=== PATIENT | male | born 1965 | race Caucasian/White ===

== ENCOUNTER 2019-12-14 15:21 | Emergency (ER) | payer BC, OTHER, SELFPAY ==
--- NOTE | 2019-12-14 15:25 | ED.WOUNDLAC ---
HPI - Wound/Laceration General Chief Complaint: Wound/Laceration Stated Complaint: Cut left 3 finger Time Seen by Provider: 12/14/19 15:40 Source: patient and RN notes reviewed Mode of arrival: ambulatory Limitations: no limitations History of Present Illness HPI narrative: 54-year male presents with concern for laceration to the third digit of his left hand. Reports sustained just prior to arrival on a broken ceramic. Reports he was dealing with superglue when he sustained a laceration, so he had superglue on his finger. Reports he tried to soak the wound into leaves to stop the bleeding, with no success. Denies weakness, decreased range of motion, decreased sensation in the digit. Patient is not up-to-date on his tetanus Extremity Location: Left: hand Related Data Home Medications Medication Instructions Recorded Confirmed amlodipine [Norvasc] 5 mg PO DAILY 12/14/19 12/14/19 diclofenac sodium 75 mg PO BID 12/14/19 12/14/19 hydrocodone-acetaminophen 1 tablet QID PRN 12/14/19 12/14/19 Allergies Allergy/AdvReac Type Severity Reaction Status Date / Time No Known Allergies Allergy Verified 12/14/19 15:38 Review of Systems Review of Systems: Narrative: CONSTITUTIONAL: Denies malaise, chills, sweats, or fever. SKIN: Reports laceration to the tip of the third digit of the left hand MUSCULOSKELETAL: Denies musculoskeletal pain, decreased range of motion NEUROLOGIC: Denies numbness, weakness. All systems reviewed & are unremarkable except as noted in HPI and below PMFSH Family History Family History (Updated 07/20/18 @ 09:48 by DOCTOR UNKNOWN) Mother Family history of diabetes mellitus in first degree relative Grandparent Family history of malignant neoplasm of breast Family history of lung cancer Other Carcinoma of colon Social History Social History Smoking status: Never smoker Alcohol intake: current Gender identity (if verbalized by the patient): Male Comments At time of signature, agree with nursing past medical, surgical, social and family history. There is no relevant family history pertinent to the presenting complaint Exam Narrative: Exam Narrative: GENERAL: Well-appearing, well-nourished, and in no acute distress. HEAD: Normocephalic, atraumatic. EYES: PERRLA, conjunctivae clear NECK: Supple. CHEST: Speaks in full sentences. No respiratory distress. HEART: Regular rate and rhythm. Normal and equal peripheral pulses. EXTREMITIES: Third digit of left hand has normal strength and sensation. 5/5 strength with digit flexion, extension. Range of motion normal. No clubbing, cyanosis, or edema noted. No tenderness. Normal digital cascade with flexion of fingers, median, ulnar and radial nerve intact. Normal sensation of each side of finger. Can perform 'okay' sign, 'cross over finger test of index and middle fingers' and 'thumbs up' sign. No scissoring. Normal thumb opposition. Good capillary refill and radial pulse. Distal capillary refill <3 seconds. NEURO: Alert and oriented x3. PSYCH: Normal mood and affect Course Course Emergency Course: Patient is aware of diagnosis, understands and agrees to treatment plan. Anticipatory guidance given. Patient agrees to follow-up as directed and is aware of reasons to seek care at the emergency department. Portions of this record may have been created with voice recognition software Vital Signs Vital signs: Reviewed. Procedures Laceration Laceration 1: Date: 12/14/19 Time: 16:10 Site: hand Side (If applicable): left Size (cm): 1 Description: linear Depth: simple, single layer Pre-repair: wound explored and irrigated ====== Skin Level ====== Skin layer closed with: dermabond and steri strips ====== Subcutaneous Layer ====== ====== Muscle Layer ====== ====== Tendon Layer ====== MDM - Wound/Laceration MDM Narrative Medical decision making narrative: Wound
[2019-12-14 15:39] VITALS: BP 132/78; PULSE 74; RESP 16; TEMP 37.3; O2SAT 98
[2019-12-14] MEDS: TETANUS,DIPHTHERIA,AC PERTUSSIS ADULT (0.5 ML) BOOSTRIX IM (15:57)
== END 2019-12-14 16:23 | disposition home or self-care (01) ==
PROVIDERS: Emergency Provider Nurse Practitioner
DX: S61.412A Laceration without foreign body of left hand, initial encounter (principal); W26.8XXA Contact with other sharp object(s), not elsewhere classified, initial encounter; Z23 Encounter for immunization
CPT/HCPCS: 12001; 90471; 90715; 99212; G0463

== ENCOUNTER 2020-12-12 12:22 | Emergency (ER) | payer OTHER, BC, SELFPAY ==
--- NOTE | ~2020-12-12 | XR_ITS ---
EXAMINATION: XR abdomen/kub 1V INDICATION: Left ureteral stones TECHNIQUE: Supine views of the abdomen were obtained on 2 radiographs. COMPARISON: CT from today FINDINGS: There are stones measuring 3 mm and 2 mm in the left proximal ureter projecting between the left L3 and L4 transverse processes. There are multiple stones in the lower pole of the right kidney which measure up to 11 mm. Additional punctate stones are seen throughout both kidneys. The bowel ga s pattern is normal. There is mild osteoarthritis of the hips. The lung bases are clear. Surgical cli ps are noted in the left scrotum. IMPRESSION: 1. Stones in the left proximal ureter. 2. Bilateral nephrolithiasis. Reviewed, dictated and finalized at location B.
--- NOTE | ~2020-12-12 | CT_ITS ---
EXAMINATION: CT abdomen pelvis wo con DATE: 12/12/2020 13:31 INDICATION: Left flank pain. TECHNIQUE: Computed tomography (CT) of the abdomen and pelvis was performed without intravenous contr ast. Automated exposure control and iterative reconstruction technique were employed. The dose-length product was 739.01 mGy-cm. COMPARISON: 08/18/2012 FINDINGS: Mild discoid atelectasis/scarring in the lingula, right middle and bilateral lower lobes. Heart size is normal. No pericardial or pleural effusion. Cholecystectomy clips the gallbladder fossa. 1.[address] in the left hepatic lobe. Spleen, pancreas and bilateral adrenal glands are normal. Bilateral nephrolithiasis with cluster of at least 6 stones in the caudal most calyx of the right kid regan the largest stone measuring 8 mm. There are a few additional 1-2 mm stones in the more cephalad r ight kidney. No right-sided ureteral stones or hydronephrosis. There are four, 1 mm stones scattered throughout the left kidney. There are 2 small stones in the proximal most left ureter, the larger and more caudal measuring 3 mm with mild left hydronephrosis. Bladder and prostate are unremarkable. There are few scattered colonic diverticula without adjacent from 3 change to suggest diverticulitis. Small bowel and appendix are normal. No free intraperitoneal gas or fluid. No pathologically enlarge d abdominal or pelvic lymphadenopathy. Likely vasectomy clips at the base of the left and right sides of the scrotum. Mild to moderate lumbar spondylosis. Schmorl's node along the inferior endplate of L 5 with small Schmorl's node along the superior endplate of L4. There are bridging osteophytes at mult iple levels in the spine, consistent with diffuse idiopathic skeletal hyperostosis (DISH). IMPRESSION: 1. Bilateral nephrolithiasis with a couple at least partially obstructing stones measuring up to 3 mm in the proximal left kidney with mild left hydronephrosis. Reviewed, dictated and finalized at location A. IMPRESSION: 1. Bilateral nephrolithiasis with a couple at least partially obstructing stone s measuring up to 3 mm in the proximal left kidney with mild left hydronephrosi s.
[2020-12-12 12:28] VITALS: BP 154/93; PULSE 72; RESP 16; TEMP 36.6; O2SAT 98
[2020-12-12 13:02] LABS: Anion Gap 9 mmol/L (8-16); Blood Urea Nitrogen 18 mg/dL (9-20); Calcium 9.3 mg/dL (8.4-10.2); Carbon Dioxide 23 mmol/L (22-30); Chloride 107 mmol/L (98-107); Estimated CRCL calculation 106 ml/min; Estimated Glomerular Filt Rate > 60; Glucose 112 mg/dL (75-110); Potassium 3.9 mmol/L (3.4-5.0); Sodium 139 mmol/L (137-145)
[2020-12-12] MEDS: KETOROLAC 30 MG/ML VIAL (*BKC) IV PUSH (13:04)
[2020-12-12 13:14] LABS: Add Urine Microscopic? YES; Appearance Urine Cloudy (Clear); Bacteria Urine Trace /hpf; Bilirubin Urine Negative (Negative); Blood Urine 3+ (Negative); Color Urine Yellow (Yellow); Glucose Urine UA Negative (Negative); Ketones Urine Negative (Negative); Leukocyte Esterase Ur Negative LEU/UL (Negative); Nitrate Urine Negative (Negative); Protein Urine 1+ mg/dL (Negative); RBC Urine >75 /hpf (0-2); Specific Grav Ur 1.019 (1.001-1.035); Urobilinogen Urine Negative mg/dL (<2.0); WBC Urine 0-3 /hpf
[2020-12-12 13:21] LABS: Basophils Absolute Auto 0.1 K/mm3 (0.0-0.1); Basophils Percent Auto 0.9 % (0.2-1.2); Eosinophils Absolute Auto 0.1 K/mm3 (0-0.3); Eosinophils Percent Auto 1.8 % (0-4.4); Hematocrit 42.9 % (42.0-52.0); Hemoglobin 14.4 g/dL (14.0-18.0); Immature Granulocyte Absolute 0.01 K/mm3 (0.00-0.031); Immature Granulocyte Percent A 0.2 % (0-0.5); Lymphocytes Percent Auto 33.4 % (18.3-44.2); Mean Corpuscular HGB Conc 33.6 g/dl (32-36); Mean Corpuscular Hemoglobin 30.4 pg (26-34); Mean Corpuscular Volume 90.7 fl (80-100); Mean Platelet Volume 10.4 fl (7.4-10.4); Monocytes Absolute Auto 0.5 K/mm3 (0.1-0.6); Monocytes Percent Auto 8.3 % (2.6-8.5); Neutrophils Absolute Auto 3.2 K/mm3 (1.3-6.7); Neutrophils Percent Auto 55.4 % (45.5-73.1); Platelet Count Result 202 k/mm3 (150-375); Red Blood Count 4.73 M/mm3 (4.6-6.20); Red Cell Distribution Width 12.4 % (11.5-14.5); White Blood Count 5.7 K/mm3 (4.5-10.0)
--- NOTE | 2020-12-12 13:48 | ED.GENADULT ---
HPI - General Adult General Chief complaint: Abdominal Pain Stated complaint: left flank pain Time Seen by Provider: 12/12/20 12:28 History of Present Illness HPI narrative: Patient is a 55-year-old male who presents ER with sudden onset left flank pain. Began earlier today. Mild nausea. Feels like previous kidney stones. No obvious hematuria urinary frequency or urgency. Denies fevers or chills or sweats. No alleviating factors. Related Data Home Medications Medication Instructions Recorded Confirmed amlodipine [Norvasc] 5 mg PO DAILY 12/14/19 07/31/20 Allergies Allergy/AdvReac Type Severity Reaction Status Date / Time No Known Allergies Allergy Verified 12/12/20 12:36 Review of Systems Review of Systems: All systems reviewed & are unremarkable except as noted in HPI and below Constitutional: Constitutional: Denies chills, Denies fever(s) and Denies weakness Gastrointestinal: Gastrointestinal: Denies abdominal pain, Reports nausea and Denies vomiting Genitourinary: Genitourinary: Denies hematuria, Denies oliguria and Denies dysuria Comments: Flank pain PMFSH Past Medical History Medical History (Updated 12/12/20 @ 14:59 by Coleman Small MD) Cholecystectomy planned Kidney stones Spine injury Surgical History Surgical History (Updated 07/31/20 @ 11:38 by Dalia Leon CMA) History of knee surgery Family History Family History (Updated 07/20/18 @ 09:48 by DOCTOR UNKNOWN) Mother Family history of diabetes mellitus in first degree relative Grandparent Family history of malignant neoplasm of breast Family history of lung cancer Other Carcinoma of colon Social History Social History Smoking status: Former smoker Alcohol intake: current Gender identity (if verbalized by the patient): Male Exam Narrative: Exam Narrative: GENERAL: Well-appearing, well-nourished, and in no acute distress. HEAD: Normocephalic, atraumatic. CHEST: Clear to auscultation. No respiratory distress. HEART: Regular rate and rhythm. Normal peripheral pulses. ABDOMEN: Soft, nontender, nondistended. EXTREMITIES: Normal range of motion. No edema. SKIN: Warm, dry, no rash. NEURO: Alert and oriented x3. PSYCH: Normal mood and affect. Course Course Emergency Course: Pain improved with Toradol morphine. Discussed case with urology. Discharge home with supportive therapy. Return precautions given. Vital Signs Vital signs: Vital Signs Temperature 97.9 F 12/12/20 12:28 Pulse Rate 72 12/12/20 12:28 Respiratory Rate 16 12/12/20 12:28 Blood Pressure 154/93 H 12/12/20 12:28 Pulse Oximetry 98 12/12/20 12:28 Temperature 97.9 F 12/12/20 12:28 Pulse Rate 72 12/12/20 12:28 Respiratory Rate 16 12/12/20 12:28 Blood Pressure 154/93 H 12/12/20 12:28 Pulse Oximetry 98 12/12/20 12:28 Medical Decision Making Vital Signs Vital Signs: Vital Signs Temperature 97.9 F 12/12/20 12:28 Pulse Rate 72 12/12/20 12:28 Respiratory Rate 16 12/12/20 12:28 Blood Pressure 154/93 H 12/12/20 12:28 Pulse Oximetry 98 12/12/20 12:28 Temperature 97.9 F 12/12/20 12:28 Pulse Rate 72 12/12/20 12:28 Respiratory Rate 16 12/12/20 12:28 Blood Pressure 154/93 H 12/12/20 12:28 Pulse Oximetry 98 12/12/20 12:28 Lab Data Result diagrams: 12/12/20 12:45 12/12/20 12:45 Labs: Lab Results 12/12/20 12/12/20 12/12/20 Range/Units 12:45 12:45 12:45 WBC 5.7 (4.5-10.0) K/mm3 RBC 4.73 (4.6-6.20) M/mm3 Hgb 14.4 (14.0-18.0) g/dL Hct 42.9 (42.0-52.0) % MCV 90.7 (80-100) fl MCH 30.4 (26-34) pg MCHC 33.6 (32-36) g/dl RDW 12.4 (11.5-14.5) % Plt Count 202 (150-375) k/mm3 MPV 10.4 (7.4-10.4) fl Immature Gran % (Auto) 0.2 (0-0.5) % Neut % (Auto) 55.4 (45.5-73.1) % Lymph % (Auto) 33.4 (18.3-44.2) % [place] % (Auto) 8.3 (2.6-8.5) % Eos % (Auto) 1.8 (0-4.4) % Baso %
[2020-12-12] MEDS: MORPHINE SULFATE (*CRX) 4 MG/ML INJ IV PUSH (14:13)
[2020-12-12 14:50] VITALS: BP 162/104; PULSE 71; RESP 18; O2SAT 99
--- NOTE | 2020-12-12 15:11 | WPDURCON ---
Assessment and Plan Assessment and plan (1) Ureterolithiasis: Code(s): N20.1 - Calculus of ureter Status: Acute Assessment and Plan: Patient will be discharged home with pain meds, as well as Flomax. He is instructed to strain his urine. He will follow up next week. If he develops any recurrent pain that he may require further management with either ureteroscopy and stone extraction versus lithotripsy. Urology Consult Note HPI Date Seen: 12/12/20 Primary Care Provider: Memo Gaitan DO Consult Narrative Narrative: Emmanuel Ngo is a 55 year old male Who presented emergency room with acute onset of left flank pain. Patient denied any fevers. He does have a history of prior stones which she is normally past. Patient has had a prior lithotripsy approximately 10 years ago. Evaluation in the emergency room with a CT scan revealed 2 proximal left ureteral stones. The largest measures 3 mm. He also has significant stone burden in the right lower pole. White count is normal. Patient is afebrile. Pain is controlled at this time. Review of Systems Review of Systems: All systems reviewed & are unremarkable except as noted in HPI and below PMFSH Past Medical History Medical History Cholecystectomy planned Kidney stones Spine injury Surgical History Surgical History History of knee surgery Family History Family History Mother Family history of diabetes mellitus in first degree relative Grandparent Family history of malignant neoplasm of breast Family history of lung cancer Other Carcinoma of colon Social History Social History Smoking status: Former smoker Alcohol intake: current Gender identity (if verbalized by the patient): Male Meds Home Medications and Allergies Home Medications Medication Instructions Recorded Confirmed Type amlodipine [Norvasc] 5 mg PO DAILY 12/14/19 07/31/20 History hydrocodone-acetaminophen 1 tablet PO Q6H PRN #20 tablet 12/12/20 Rx ondansetron 4 mg PO Q6H PRN #10 tablet 12/12/20 Rx tamsulosin 0.4 mg PO DAILY #7 cap 12/12/20 Rx Allergies Allergy/AdvReac Type Severity Reaction Status Date / Time No Known Allergies Allergy Verified 12/12/20 12:36 Vital Signs Vital Signs - 24 hr 12/12/20 12:28 Temperature 36.6 C Pulse Rate 72 Respiratory Rate 16 Blood Pressure 154/93 H Pulse Oximetry 98 Exam Const: General: cooperative and no acute distress Chest: Chest palpation & inspection: normal inspection of the chest Resp: Effort & Inspection: normal respiratory effort Cardio: Rate: regular rate Rhythm: regular rhythm Results Labs CBC & Chem 7: 12/12/20 12:45 12/12/20 12:45 Labs: Short CBC 12/12/20 Range/Units 12:45 WBC 5.7 (4.5-10.0) K/mm3 Hgb 14.4 (14.0-18.0) g/dL Hct 42.9 (42.0-52.0) % Plt Count 202 (150-375) k/mm3 BMP 12/12/20 12:45 Sodium 139 Potassium 3.9 Chloride 107 Carbon Dioxide 23 BUN 18 Creatinine 0.90 Glucose 112 H Calcium 9.3 Urine 12/12/20 Range/Units 12:45 Urine Color Yellow (Yellow) Urine Appearance Cloudy H (Clear) Urine pH 7.0 (5.0-9.0) Ur Specific [place] 1.019 (1.001-1.035) Urine Protein 1+ H (Negative) mg/dL Urine Glucose (UA) Negative (Negative) mg/dL
== END 2020-12-12 15:32 | disposition home or self-care (01) ==
PROVIDERS: Emergency Provider Emergency Medicine; PCP Internal Medicine
DX: N13.2 Hydronephrosis with renal and ureteral calculous obstruction (principal); Z87.442 Personal history of urinary calculi; Z87.891 Personal history of nicotine dependence
CPT/HCPCS: 36415; 74018; 74176; 80048; 81001; 85025; 96374; 96375; 99284; J1885; J2270

== ENCOUNTER 2021-12-19 19:57 | Emergency (ER) | payer BC, OTHER, SELFPAY ==
[2021-12-19 20:40] VITALS: BP 135/80; PULSE 80; RESP 16; TEMP 36.9; O2SAT 99
--- NOTE | 2021-12-19 21:24 | ED.EYEPROB ---
HPI - Eye Problem General Chief complaint: Eye Problems Stated complaint: eye pain Time Seen by Provider: 12/19/21 21:25 Source: patient, RN notes reviewed and old records reviewed Mode of arrival: ambulatory Limitations: no limitations History of Present Illness HPI Narrative: [id number] year old male who presents to [facility] care with complaints of irritation to his left eye since midday. He reports that he used some OTC drops to his left eye with no relief. Patient is having excessive tearing to his left eye with redness and some swelling to his left upper eyelid. Patient reports that it feels like something in his eye and he states he is concerned for possible corneal abrasion. MD chief complaint: eye redness and foreign body Onset (ago): hour(s) (mid day today) Treatments Prior to Arrival: OTC eye drops Related Data Home Medications Medication Instructions Recorded Confirmed amlodipine 5 mg tablet (Norvasc) 5 mg PO DAILY 12/14/19 12/19/21 Allergies Allergy/AdvReac Type Severity Reaction Status Date / Time No Known Allergies Allergy Verified 12/19/21 20:14 Review of Systems Review of Systems: CONSTITUTIONAL: Denies fever, chills, or sweats. EYES: Denies visual changes,positive redness, no discharge excessive tearing is noted to left eye, no sharp pain to left eye ENT: Denies rhinorrhea, congestion, sore throat, or otalgia. CARDIOVASCULAR: Denies chest pain, palpitations, or edema. RESPIRATORY: Denies cough or dyspnea. GASTROINTESTINAL: Denies abdominal pain, nausea, vomiting, or diarrhea. GENITOURINARY: Denies dysuria or hematuria. SKIN: Denies rash or itching. MUSCULOSKELETAL: Positive for chronic back pain, joint pain, or myalgia. NEUROLOGIC: Denies headache, numbness, or weakness. PSYCHIATRIC: Denies anxiety or depression. [facility] Past Medical History Medical History Cholecystectomy planned Kidney stones Spine injury Surgical History Surgical History History of knee surgery Family History Family History Mother Family history of diabetes mellitus in first degree relative Grandparent Family history of malignant neoplasm of breast Family history of lung cancer Other Carcinoma of colon Social History Social History Smoking status: Former smoker Alcohol intake: current Gender identity (if verbalized by the patient): Male Comments At time of signature, agree with nursing past medical, surgical, social and family history. There is no relevant family history pertinent to the presenting complaint Exam Narrative: GENERAL: Well-appearing, well-nourished, and in no acute distress. HEAD: Normocephalic, atraumatic. EYES: PERRLA and EOMI. left eye red sclera with excessive tearing no drainage no acute sharp pain or changes in vision some swelling to left upper eyelid see procedure note ENT: Nares clear, no rhinorrhea or epistaxis. Mucous membranes moist. TMs normal throat pink with no lesions or exudates or tonsillar swelling NECK: Supple. No lymphadenopathy CHEST: Clear to auscultation. No respiratory distress. No cough or congestion SaO2 99% on room air HEART: Regular rate and rhythm. No murmur heard. Normal peripheral pulses. ABDOMEN: Soft, nontender, nondistended, normal active bowel sounds. EXTREMITIES: Normal range of motion. No edema. SKIN: Warm, dry, no rash. NEURO: No focal deficits. Alert and oriented x3. Course Course Level of Care: Express Care Visit Vital Signs Vital signs: Vital Signs Temperature 36.9 C 12/19/21 20:40 Pulse Rate 80 12/19/21 20:40 Respiratory Rate 16 12/19/21 20:40 Blood Pressure 135/80 12/19/21 20:40 Pulse Oximetry 99 12/19/21 20:40 Oxygen Delivery Room Air 12/19/21 20:40 Temperature 36.9 C 12/19/21 20:40 Pulse Rate 80
[2021-12-19] MEDS: DACRIOSE EYE IRRIGATION 118 ML BOTTLE 50 ML LEFT EYE (21:36)
[2021-12-19] MEDS: FLUORESCEIN SOD 1 MG/STRIP EACH EYE (21:36)
[2021-12-19] MEDS: TETRACAINE HCL 0.5% OPHTH SOLN 4 ML BTL 1 DROP EACH EYE (21:37)
== END 2021-12-19 21:50 | disposition home or self-care (01) ==
PROVIDERS: Emergency Provider Registered Nurse; PCP Internal Medicine
DX: T15.92XA Foreign body on external eye, part unspecified, left eye, initial encounter (principal); Z87.891 Personal history of nicotine dependence; X58.XXXA Exposure to other specified factors, initial encounter
CPT/HCPCS: 65205; 99213; A9270; G0463